=== PATIENT | female | born 1985 | race Caucasian/White ===

== ENCOUNTER 2017-08-13 14:34 | Emergency (ER) | END 2017-08-13 15:13 | disposition home or self-care (01) ==

== ENCOUNTER 2017-11-20 19:18 | Outpatient (CLI) | END 2017-11-20 22:27 | disposition home or self-care (01) ==

== ENCOUNTER 2017-11-23 09:01 | Inpatient (IN) | END 2017-11-27 12:30 | disposition home or self-care (01) | DRG 766 ==

== ENCOUNTER 2017-12-24 11:18 | Emergency (ER) | END 2017-12-24 14:37 | disposition home or self-care (01) ==